=== PATIENT | male | born 1980 ===

== ENCOUNTER 2018-06-02 08:23 | Emergency (ER) | payer OTHER ==
[2018-06-02 08:23] VITALS: BMI 27.4
[2018-06-02 08:37] VITALS: RESP 18
--- NOTE | 2018-06-02 08:51 | ED PDOC ---
Arrival/HPI - General Chief Complaint: Back Pain Historian: Patient - History of Present Illness Narrative History of Present Illness (Text): 06/02/18 08:47 38 year old male, with no significant past medical history, presents to the Emergency department complaining of left sided flank pain intermittently radiating to left lower abdomen since 3 weeks. Patient states worsening discomfort with movement and urinary output. Patient informs associated dysuria and urinary resistance but denied any hematuria or urinary output changes. Patient denies any history of nephrolithiasis or any injury or trauma to the site. Patient denies any fevers, chills, headache, dizziness, chest pain, shortness of breath, dyspnea on exertion, cough, nausea, vomiting, diarrhea, neck pain, or any other complaints. Patient presents to the Emergency department for medical evaluation. PMD: NONE Time/Duration: > week (3 weeks) Symptom Onset: Gradual Symptom Course: Unchanged Activities at Onset: Light Context: Home Past Medical History - Provider Review Nursing Documentation Reviewed: Yes - Infectious Disease Hx of Infectious Diseases: None - Psychiatric Hx Psychophysiologic Disorder: Yes Hx Anxiety: Yes Hx Substance Use: No - Anesthesia Hx Anesthesia: No Hx Anesthesia Reactions: No Hx Malignant Hyperthermia: No Family/Social History - Physician Review Nursing Documentation Reviewed: Yes Family/Social History: Unknown Family HX Smoking Status: Never Smoked Hx Alcohol Use: Yes Hx Substance Use: No Allergies/Home Meds Allergies/Adverse Reactions: Allergies No Known Allergies Allergy (Verified 04/03/17 21:00) Review of Systems - Physician Review All systems were reviewed & negative as marked: Yes - Review of Systems Constitutional: absent: Fevers Respiratory: absent: SOB, Cough Cardiovascular: absent: Chest Pain Gastrointestinal: Abdominal Pain (left sided flank pain). absent: Diarrhea, Nausea, Vomiting Genitourinary Male: Dysuria. absent: Hematuria, Urinary Output Changes Skin: absent: Rash Neurological: absent: Headache, Dizziness Psychiatric: absent: Anxiety, Depression Physical Exam Vital Signs Reviewed: Yes Vital Signs Temp Pulse Resp BP Pulse Ox 06/02/18 08:33 97.4 F L 75 18 124/81 100 Temperature: Afebrile Blood Pressure: Normal Pulse: Regular Respiratory Rate: Normal Appearance: Positive for: Well-Appearing, Non-Toxic, Comfortable Pain Distress: None Mental Status: Positive for: Alert and Oriented X 3 - Systems Exam Head: Present: Atraumatic, Normocephalic Pupils: Present: PERRL Extroacular Muscles: Present: EOMI Conjunctiva: Present: Normal Mouth: Present: Moist Mucous Membranes Neck: Present: Normal Range of Motion Respiratory/Chest: Present: Clear to Auscultation, Good Air Exchange. No: Respiratory Distress, Accessory Muscle Use Cardiovascular: Present: Regular Rate and Rhythm, Normal S1, S2. No: Murmurs Abdomen: No: Tenderness, Distention, Peritoneal Signs Back: Present: Normal Inspection Upper Extremity: Present: Normal Inspection. No: Cyanosis, Edema Lower Extremity: Present: Normal Inspection. No: Edema Neurological: Present: GCS=15, CN II-XII Intact, Speech Normal Skin: Present: Warm, Dry, Normal Color. No: Rashes Psychiatric: Present: Alert, Oriented x 3, Normal Insight, Normal Concentration Medical Decision Making ED Course and Treatment: 06/02/18 08:53 Impression: 38 year old male presents to the Emergency department complaining of left sided flank discomfort. Plan: -- CT of Abdomen/Pelvis -- Labs -- Urinalysis -- Urine Culture -- Reassess and disposition Prior Visits: Notes and results from previous visits were reviewed. Progress Notes: - RAD Interpretation Narrative RAD Interpretations (Text): 06/02/18 10:01 CT of Abdomen/Pelvis reviewed by radiologist, shows: FINDINGS: LOWER THORAX: Unremarkable. LIVER: Unremarkable. No gross lesion or ductal dilatation. GALLBLADDER AND BILE DUCTS: Unremarkable. PANCREAS: Unremarkable. No gross lesion or ductal dilatation. SPLEEN: Unremarkable. ADRENALS: Unremarkable. No mass. KIDNEYS AND URETERS: Unremarkable. No hydronephrosis. No solid mass. VASCULATURE: Unremarkable. No aortic aneurysm. No aortic atherosclerotic calcification or mural plaque present. BOWEL: Unremarkable. No obstruction. No gross mural thickening. APPENDIX: Unremarkable. Normal appendix. PERITONEUM: Unremarkable. No free fluid. No free air. LYMPH NODES: Unremarkable. No enlarged lymph nodes. BLADDER: Unremarkable. REPRODUCTIVE: Unremarkable. BONES: No acute fracture. OTHER FINDINGS: None. IMPRESSION: No acute findings. No evidence of urolithiasis Willow Analyst: Radiologist - Scribe Statement The provider has reviewed the documentation as recorded by the Renetta Avendaño. All medical record entries made by the Renetta were at my direction and personally dictated by me. I have reviewed the chart and agree that the record accurately reflects my personal performance of the history, physical exam, medical decision making, and the department course for this patient. I have also personally directed, reviewed, and agree with the discharge instructions and disposition. Disposition/Present on Arrival - Present on Arrival Any Indicators Present on Arrival: No History of DVT/PE: No History of Uncontrolled Diabetes: No Urinary Catheter: No History of Decub. Ulcer: No History Surgical Site Infection Following: None - Disposition Have Diagnosis and Disposition been Completed?: Yes Diagnosis: Back pain Disposition: HOME/ ROUTINE Disposition Time: 09:40 Condition: GOOD Discharge Instructions (ExitCare): Low Back Pain (DC) Additional Instructions: LEILA ANN, thank you for letting us take care of you today. The emergency medical care you received today was directed at your acute symptoms. If you were prescribed any medication, please fill it and take as directed. It may take several days for your symptoms to resolve. Return to the Emergency Department if your symptoms worsen, do not improve, or if you have any other problems. Please contact your doctor or call one of the physicians/clinics you have been referred to that are listed on the Patient Visit Information form that is included in your discharge packet. Bring any paperwork you were given at discharge with you along with any medications you are taking to your follow up visit. Our treatment cannot replace ongoing medical care by a primary care provider outside of the emergency department. Thank you for allowing the [facility] team to be part of your care today. Follow up with the clinic in 3-5 days for re-evaluation and further management. Prescriptions: Ibuprofen [Motrin] 600 mg PO Q6 PRN #20 tab PRN Reason: Pain, Moderate (4-7) Referrals: [facility] [Outside] - Follow up with primary Marizol South MD [Medical Doctor] - Follow up with primary Forms: [employer] ([place])
[2018-06-02 09:08] VITALS: BP 122/80; PULSE 77; TEMP 98; O2SAT 98
--- NOTE | 2018-06-02 09:35 | CT ---
Date of service: 06/02/2018 PROCEDURE: CT Abdomen and Pelvis without intravenous contrast HISTORY: left flank pain COMPARISON: 05/10/2017 TECHNIQUE: Technique. Contrast dose: Radiation dose: Total exam DLP = 514.41 mGy-cm. This CT exam was performed using one or more of the following dose reduction techniques: Automated exposure control, adjustment of the mA and/or kV according to patient size, and/or use of iterative reconstruction technique. FINDINGS: LOWER THORAX: Unremarkable. LIVER: Unremarkable. No gross lesion or ductal dilatation. GALLBLADDER AND BILE DUCTS: Unremarkable. PANCREAS: Unremarkable. No gross lesion or ductal dilatation. SPLEEN: Unremarkable. ADRENALS: Unremarkable. No mass. KIDNEYS AND URETERS: Unremarkable. No hydronephrosis. No solid mass. VASCULATURE: Unremarkable. No aortic aneurysm. No aortic atherosclerotic calcification or mural plaque present. BOWEL: Unremarkable. No obstruction. No gross mural thickening. APPENDIX: Unremarkable. Normal appendix. PERITONEUM: Unremarkable. No free fluid. No free air. LYMPH NODES: Unremarkable. No enlarged lymph nodes. BLADDER: Unremarkable. REPRODUCTIVE: Unremarkable. BONES: No acute fracture. OTHER FINDINGS: None. IMPRESSION: No acute findings. No evidence of urolithiasis
[2018-06-02 09:40] LABS: URINE BILIRUBIN NEGATIVE (NEGATIVE); URINE BLOOD NEGATIVE (NEGATIVE); URINE GLUCOSE (UA) NEGATIVE (NEGATIVE); URINE LEUKOCYTE ESTERASE NEGATIVE Leu/uL (NEGATIVE); URINE PROTEIN NEGATIVE mg/dL (<30 mg/dL); URINE UROBILINOGEN 0.2 E.U./dL (<1 E.U./dL)
[2018-06-02 09:42] LABS: URINE APPEARANCE CLEAR (CLEAR); URINE COLOR YELLOW (YELLOW)
== END 2018-06-02 09:58 | disposition home or self-care (01) ==
LOC: ED 08:23
DX: M54.5 Low back pain (principal)
CPT/HCPCS: 74176; 81003; 87086; 96374; 99282; J1885

== ENCOUNTER 2018-06-12 15:08 | Emergency (ER) | payer SELFPAY ==
[2018-06-12 15:08] VITALS: BMI 27.4
[2018-06-12 15:41] VITALS: RESP 18; TEMP 98
[2018-06-12] MEDS ORDERED: Sodium Chloride 0.9% 1,000 ML IV STA (16:07)
--- NOTE | 2018-06-12 16:37 | RAD ---
HISTORY: chest pain COMPARISON: Chest x-ray performed 07/24/16 TECHNIQUE: Chest, one view. FINDINGS: LUNGS: No focal consolidation. Please note that chest x-ray has limited sensitivity for the detection of pulmonary masses. PLEURA: No significant pleural effusion identified. No definite pneumothorax . CARDIOVASCULAR: Heart size appears within normal limits. No significant atherosclerotic calcification present. OSSEOUS STRUCTURES: No acute osseous abnormality identified. VISUALIZED UPPER ABDOMEN: Unremarkable. OTHER FINDINGS: None. IMPRESSION: No focal consolidation identified.
--- NOTE | 2018-06-12 16:44 | ED PDOC ---
Arrival/HPI - General Chief Complaint: GI Problem Time Seen by Provider: 06/12/18 15:14 Historian: Patient - History of Present Illness Narrative History of Present Illness (Text): 06/12/18 16:00 38 M with PMHx of anxiety attacks, presents with cc of arms shaking bilaterally and nausea since this morning. Pt reports he feels shaky, has sweaty hands, feels cold, and feels like he is about to faint. Pt notes left-sided chest pain when sleeping on left side. Pt reports he is a non-smoker and consumes EtOH about once a week. Pt denies shortness of breath, chest pain, coughing, fevers, change in urinary output, any current anxiety, leg edema, or any other complaints. Time/Duration: 4-6 hours (Patient reports onset as this morning) Symptom Onset: Sudden Symptom Course: Unchanged Activities at Onset: Light Past Medical History - Provider Review Nursing Documentation Reviewed: Yes - Infectious Disease Hx of Infectious Diseases: None - Psychiatric Hx Psychophysiologic Disorder: Yes Hx Anxiety: Yes Hx Substance Use: No - Anesthesia Hx Anesthesia: No Hx Anesthesia Reactions: No Hx Malignant Hyperthermia: No Family/Social History - Physician Review Nursing Documentation Reviewed: Yes Family/Social History: No Known Family HX Smoking Status: Never Smoked Hx Alcohol Use: Yes Hx Substance Use: No Allergies/Home Meds Allergies/Adverse Reactions: Allergies No Known Allergies Allergy (Verified 06/12/18 15:42) Review of Systems - Physician Review All systems were reviewed & negative as marked: Yes (All other systems negative except that noted in the HPI.) Physical Exam - Physical Exam Narrative Physical Exam (Text): Gen: VS reviewed, alert, well developed, well nourished, nontoxic, mild distress Eye: EOMI, PERRL Neck: no JVD, supple, no adenopathy CV: regular rate, regular rhythm, no rubs,no murmur, S1, S2 Pulm: no distress, clear to auscultation, no wheeze, no rhonchi, breath sounds equal, no rales Abd: soft, nontender, no guarding, no rebound, no rigidity Ext: no edema Skin: good color, no rash, no cyanosis Psych: responds appropriately to questions, normal affect Neuro: oriented x3, CN2-12 intact grossly, motor intact, sensation intact. Appears mildly tremulous. Vital Signs Reviewed: Yes Vital Signs Temp Pulse Resp BP Pulse Ox 06/12/18 15:40 98 F 88 18 136/85 97 Temperature: Afebrile Blood Pressure: Normal Pulse: Regular Respiratory Rate: Normal Appearance: Positive for: Well-Appearing, Non-Toxic Pain Distress: None Mental Status: Positive for: Alert and Oriented X 3 Medical Decision Making ED Course and Treatment: 06/12/18 16:00 Impression: 38 M presents with cc of arms shaking bilaterally and nausea since this morning. Differential Diagnosis included but are not limited to: Plan: -- EKG -- Labs -- X-ray of chest -- CBC (with differential) -- IV fluids -- Reassess and disposition Prior Visits: Notes and results from previous visits were reviewed. Last on 06/02/18 complaining of left sided flank pain intermittently radiating to left lower abdomen since 3 weeks prior to arrival. Patient was discharged home in good condition, with diagnosis of back pain, with prescription for Ibuprofen [Motrin] 600 mg PO Q6 PRN #20 tab, and directed to follow up with PMD. Progress Notes: 06/12/18 17:48 patient feels much better and ready to go home. symptoms have completely resolved. patient seen for nausea, feeling faint. no acute headache, no acute chest pain or abd pain or back pain or dyspnea associated with near syncope feeling. patient remained stable throughout Emergency department course. patient refer to clinic. - RAD Interpretation Radiology Orders: 06/12/18 16:07 CHEST PORTABLE [RAD] Stat - EKG Interpretation EKG Interpretation (Text): 06/12/18 16:23 EKG: Ordered, reviewed, and independently interpreted the EKG. Rate: 80 BPM Rhythm: NSR Interpretation: Normal qrs. No acute St-twave abnormality. Interpreted by ED Physician: Yes Type: 12 lead EKG - Medication Orders Current Medication Orders: Sodium Chloride (Sodium Chloride 0.9%) 1,000 mls @ 999 mls/hr IV .Q1H1M STA Stop: 06/12/18 17:07 Last Admin: 06/12/18 16:22 Dose: 999 mls/hr eMAR Start Stop Document 06/12/18 16:22 [place] (Rec: 06/12/18 16:22 [facility] [place] [id number]) Intravenous Solution Start Date 06/12/18 Start Time 16:22 End Date 06/12/18 End time 17:23 Total Infusion Time 61 - Scribe Statement The provider has reviewed the documentation as recorded by the Teteibe Milena Treviño All medical record entries made by the Teteibyolanda were at my direction and personally dictated by me. I have reviewed the chart and agree that the record accurately reflects my personal performance of the history, physical exam, medical decision making, and the department course for this patient. I have also personally directed, reviewed, and agree with the discharge instructions and disposition. Disposition/Present on Arrival - Present on Arrival Any Indicators Present on Arrival: No History of DVT/PE: No History of Uncontrolled Diabetes: No Urinary Catheter: No History of Decub. Ulcer: No History Surgical Site Infection Following: None - Disposition Have Diagnosis and Disposition been Completed?: Yes Diagnosis: Near syncope Disposition: HOME/ ROUTINE Disposition Time: 17:50 Patient Plan: Discharge Condition: STABLE Discharge Instructions (ExitCare): Near Fainting Additional Instructions: Stay well hydrated (water). Return for any new worsening symptoms. LEILA ANN, thank you for letting us take care of you today. Your provider was Dr. Chucho Walls and you were treated for near fainting. The emergency medical care you received today was directed at your acute symptoms. If you were prescribed any medication, please fill it and take as directed. It may take several days for your symptoms to resolve. Return to the Emergency Department if your symptoms worsen, do not improve, or if you have any other problems. Please contact your doctor or call one of the physicians/clinics you have been referred to that are listed on the Patient Visit Information form that is included in your discharge packet. Bring any paperwork you were given at discharge with you along with any medications you are taking to your follow up visit. Our treatment cannot replace ongoing medical care by a primary care provider outside of the emergency department. [facility]. If you had an X-Ray or CT scan: A Radiologist will review the ED reading if any change in treatment is needed we will contact you. If you had a blood, urine, or wound culture: It will take several days for the results, if any change in treatment is needed we will contact you. If you had an STI test: It will take 48 hours for the results. Please call after 1 week if you have not heard back. Referrals: [facility] [Outside] - Follow up with primary Marizol South MD [Medical Doctor] - Follow up with primary Forms: [employer] ([place]), WORK NOTE
[2018-06-12 16:52] LABS: BASO # 0.01 K/mm3 (0.0-2.0); BASO % 0.1 % (0.0-3.0); EOS % 0.5 % (1.5-5.0); GRAN # 4.76 (1.4-6.5); GRAN % 63.3 % (50.0-68.0); HEMOGLOBIN 14.8 g/dL (14.0-18.0); LYMPH # 1.8 (1.2-3.4); LYMPH % 23.4 % (22.0-35.0); MEAN CORPUSCULAR HGB CONC 34.5 g/dl (31.0-37.0); MEAN PLATELET VOLUME 10.1 fl (7.0-11.0); MONO % 12.7 % (1.0-6.0); RBC 4.93 10^6/uL (3.5-6.1); RED CELL DISTRIBUTION WIDTH 12.5 % (11.5-14.5); WHITE BLOOD COUNT 7.5 10^3/uL (4.5-11.0)
[2018-06-12 17:20] LABS: ALB/GLOB RATIO 1.2 (1.1-1.8); ALBUMIN 4.8 g/dL (3.0-4.8); ALT/SGPT 35 U/L (7-56); AST/SGOT 34 U/L (17-59); BLOOD UREA NITROGEN 16 mg/dL (7-21); CALCIUM 9.7 mg/dL (8.4-10.5); GFR NON-AFRICAN AMERICAN > 60
[2018-06-12 17:29] LABS: TROPONIN I < 0.01 ng/mL
[2018-06-12 17:53] VITALS: BP 124/80; PULSE 76; O2SAT 98
--- NOTE | 2018-06-13 11:04 | CARD ---
APPROVED REPORT Date of service: 06/12/2018 EKG Measurement Heart [id number] <Conclusion> Normal sinus rhythm Normal ECG
== END 2018-06-12 17:57 | disposition home or self-care (01) ==
LOC: ED 15:08
DX: R55 Syncope and collapse (principal)
CPT/HCPCS: 71045; 80053; 82550; 83735; 84484; 85025; 93005; 96360; 99284; G0480; J7030